=== PATIENT | male | born 1940 | race Two or more races ===

== ENCOUNTER 2025-04-22 13:01 | Emergency (ER) | payer OTHER ==
[~2025-04-22] VITALS: Ht 167.6 cm; Wt 75.6 kg
--- NOTE | 2025-04-22 14:44 | ED.PDOC ---
Eye-HPI HPI Comments The patient presented with a sore throat and a concern about a growth or mass in the throat. The patient reported having a sore throat and described a sensation of a growth or mass in the throat. The patient recalled an incident from a year ago when something hit the left side of the face and the right side of the neck, near the right clavicle. Since then, the patient experienced pain in the muscles around the neck and believed that a muscle might have been dislodged, causing a growth in the throat. The patient expressed the belief that the muscle roots were displaced and caused the growth. The patient did not report any masses, swelling, or enlargement of the throat. The patient also mentioned that a doctor had advised seeing an ear, nose, and throat specialist for further evaluation. Denies any other symptoms at this time. Denies chest pain shortness of breath Denies inability to move neck, history of meningitis Denies difficulty swallowing nor persistent salivation Denies fevers chills night sweats Denies persistent cough, runny nose, congestion Denies loss of appetite, unintentional weight loss over the past 3 months Denies voice changes Denies history of asthma or seasonal allergies Centor's criteria Look for anterior cervical lymphadenopathy Sandpaperlike rash Tonsillar exudate Tenderness over cervical lymph node Chief Complaint: Body Pain Time Seen by MD: 14:45 Reviewed Notes: Nurses Notes, Medications, Allergies Allergies: Coded Allergies: NO KNOWN ALLERGIES (Unverified , 04/22/25) Home Meds Active Scripts Doxycycline (Monohydrate) (Avidoxy) 100 Mg Tab, 100 MG PO BID for 7 Days, #14 TAB 0 Refills Prov:ANGEL CULLEN Rosa RODRIGUEZ 04/22/25 Information Source: Patient Mode of Arrival: Ambulatory Timing: Other (years) Duration: Since onset Prehospital treatment: None Quality: Pain Lids: Normal Conjunctiva: Normal Cornea: Normal Pupils: Normal EOM: Normal Fundus: Normal Slit lamp exam: Normal Anterior chamber: Normal Mouth: Normal ENT Ear Exam: Normal Nose: Normal Sinuses: Normal Oropharynx: Normal Onset: Spontaneous Throat Exposed to: None History of: None Associated signs and symptoms: Sore Throat Past Medical History PAST MEDICAL HISTORY: Denies Surgical History: Denies all surgeries Family History Family History: Reviewed,noncontributory to illness, Unknown Social History Smoker: Non-Smoker Alcohol: Denies ETOH Use Drugs: Denies Drug Use Lives In: Home Constitutional: denies: chills, diaphoresis, fatigue, fever, malaise, sweats, weakness, others EENTM: reports: throat pain (uncomfortable), throat swelling; denies: blurred vision, double vision, ear bleeding, ear discharge, ear drainage, ear pain, ear ringing, eye pain, eye redness, hearing loss, mouth pain, mouth swelling, nasal discharge, nose bleeding, nose congestion, nose pain, photophobia, tearing, voice changes, others Respiratory: denies: cough, hemoptysis, orthopnea, SOB at rest, shortness of breath, SOB with excertion, stridor, wheezing, others Cardiovascular: denies: chest pain, dizzy spells, diaphoresis, Dyspnea on exertion, edema, irregular heart beat, left arm pain, lightheadedness, palpitations, PND, syncope, others Gastrointestinal: denies: abdomen distended, abdominal pain, blood streaked bowels, constipated, diarrhea, dysphagia, difficulty swallowing, hematemesis, melena, nausea, poor appetite, poor fluid intake, rectal bleeding, rectal pain, vomiting, others Genitourinary: denies: burning, dysuria, flank pain, frequency, hematuria, incontinence, penile discharge, penile sore, pain, testicle pain, testicle swelling, urgency, others Neurological: denies: dizziness, fainting, headache, left sided numbness, left sided weakness, numbness, paresthesia, pre-existing deficit, right sided numbness, right sided weakness, seizure, speech problems, tingling, tremors, w eakness, others Musculoskeletal: denies: back pain, gout, joint pain, joint swelling, muscle pain, muscle stiffness, neck pain, others Integumetry: denies: bruises, change in color, change in hair/nails, dryness, laceration, lesions, lumps, rash, wounds, others Allergic/Immunocompromised: denies: Difficulty Healing, Frequent Infections, Hives, Itching, others Hematologic/Lymphatic: denies: anemia, blood clots, easy bleeding, easy bruising, swollen glands, others Endocrine: denies: excessive hunger, excessive sweating, excessive thirst, excessive urination, flushing, intolerance to cold, intolerance to heat, unexplained weight gain, unexplained weight loss, others Psychiatric: denies: anxiety, bipolar disorder, depression, hopeless, panic disorder, schizophrenia, sleepless, suicidal, others All Other Systems: Reviewed and Negative Physical Exam Exam Comments Moist mucous membranes, uvula midline, no airway obstruction, no tenderness in the cervical lymph nodes, no visible masses, no tracheal deviation, neck supple. Cardiac, Respiratory: Lungs were clear. General Appearance: No Apparent Distress, Normal HEENT: Normal ENT Inspection, Pharynx Normal, TMs Normal Neck: Full Range of Motion, Non-Tender, Normal, Normal Inspection Respiratory: Chest Non-Tender, Lungs Clear, No Accessory Muscle Use, No Respiratory Distress, Normal Breath Sounds Cardiovascular: No Edema, No JVD, No Murmur, No Gallop, Normal Peripheral Pulses, Regular Rate/Rhythm Breast Exam: Deferred Gastrointestinal: No Organomegaly, Non Tender, No Pulsatile Mass, Normal Bowel Sounds, Soft Genitalia: Deferred Pelvic: Deferred Rectal: Deferred Extremities: No calf tenderness, Normal capillary refill, Normal inspection, Normal range of motion, Non-tender, No pedal edema Musculoskeletal : Apperance: Normal Neurologic: Alert, ocean biologist II-XII nml as Tested, No Motor Deficits, Normal Affect, Normal Mood, No Sensory Deficits Cerebellar Function: Normal Reflexes: Normal Skin: Dry, Normal Color, Warm Lymphatic: No Adenopathy Was a procedure done? Was a procedure done?: No EENT DIFF Eye: Other X-Ray, Labs, Meds, VS Vital Signs Date Time Temp Pulse Resp B/P (MAP) Pulse Ox O2 Delivery O2 Flow Rate FiO2 04/22/25 16:28 92 18 96 Room Air 04/22/25 16:28 98.2 92 18 110/72 (85) 96 98.2 04/22/25 13:06 98.1 51 16 124/48 94 98.1 X-Ray, Labs, Meds, VS Comment Patient arrives alert and oriented, ABC's intact, afebrile, vital signs stable, saturating well in room air The patient presented with a sore throat and a perceived growth in the throat. The patients symptoms may suggest a possible benign growth or an infection, given the description of pain and perceived mass. The lack of any visible masses or tracheal deviation, along with the clear lungs, suggests that there may not be an immediate airway threat. However, the patient's persistent concern and the history of trauma necessitate further investigation to rule out any underlying pathology. The patient was advised to follow up with an ear, nose, and throat specialist for further evaluation and management of the perceived growth. A chest X-ray was discussed as a potential diagnostic tool, pending follow-up with the specialist. The patient was informed that the current examination did not reveal visible masses or airway obstructions but was advised to pursue further evaluation with a specialist. The patient was advised to schedule an appointment with their primary care physician and an ear, nose, and throat specialist for ongoing management. The patient was informed about the importance of follow-up to address the concerns with a specialist. Additional MDM Review of External, Non-ED records: External records reviewed. Discussion with independent historian (EMS, family) history obtained from the patient/parents (if applicable) at bedside Chronic conditions affecting care: None Social determinants of health affecting care: None Consideration of admission (observation or admission): I considered escalation of care to admission for this patient, however given the reassuring workup, the patient is safe for outpatient management. Discussion with the Radiology: No Tests considered but not performed: Prescription medication considered but not given: Time of 1ST Reevaluation: 15:15 Reevaluation 1ST: Unchanged Patient Education/Counseling: Diagnosis, Treatment, Prognosis Family Education/Counseling: No Family Present SEPSIS Sepsis Screen Date sepsis recognized/suspect: Apr 22, 2025 Time Sepsis recognized/suspect: 1306 Recent Procedure: No On Antibiotic Therapy: No Respiratory Rate >20: No Heart Rate >90: No Temp<36 C (96.8 F) or >38.3 C: No SBP <90 or MAP <65 mmHG: No New Acute Mental Status Change: No Is the patient on CPAP, BIPAP,: No Physician Orders Chest Xray 1 View (04/22/25 14:36) Vital Signs Date Time Temp Pulse Resp B/P (MAP) Pulse Ox O2 Delivery O2 Flow Rate FiO2 04/22/25 16:28 92 18 96 Room Air 04/22/25 16:28 98.2 92 18 110/72 (85) 96 98.2 04/22/25 13:06 98.1 51 16 124/48 94 98.1 Departure 1 Departure Time of Disposition: 15:51 Impression: Primary Impression: Pulmonary infiltrate Disposition: 01 HOME / SELF CARE / HOMELESS Condition: Stable e-Prescriptions Doxycycline (Monohydrate) (Avidoxy) 100 Mg Tab 100 MG PO BID for 7 Days, #14 TAB 0 Refills Prov: ANGEL CULLEN NP 04/22/25 Discharged With: Self Critical Care Note Critical Care Time?: No Stability Stability form required: No Heart Score Heart Score: Heart Score Response (Comments) Value History N/A 0 EKG N/A 0 Age N/A 0 Risk Factors N/A 0 Troponin N/A 0 Total 0 I personally scribed for ANGEL CULLEN NP ([email or web address]) on 04/22/25 at 14:44. Electronically submitted by Gerry Mike ([email or web address]). ANGEL CULLEN NP Apr 22, 2025 14:44
--- NOTE | 2025-04-22 15:13 | DVH ---
CHEST RADIOGRAPH Indication: r/o pathology Technique: Single frontal view of the chest was obtained Comparison: None FINDINGS: Lines and Tubes: None Lungs: Mildly prominent bronchovascular markings noted in both lung bases. This may be due to atelectasis or chronic disease. There are no prior studies for comparison Pleura: No effusion. No pneumothorax. Cardiomediastinal contours: Unremarkable Bones: No acute osseous abnormality. IMPRESSION: 1. Prominent bibasilar bronchovascular markings. This may represent developing infiltrate or atelectasis. A 3rd possibility may be that this is chronic disease. There are no prior studies for comparison.
[2025-04-22] MEDS ORDERED: DOXY100T51 PO (15:52)
[2025-04-22 16:28] VITALS: BP 110/72; PULSE 92; RESP 18; TEMP 98.2; O2SAT 96
== END 2025-04-22 16:30 | disposition home or self-care (01) ==
LOC: ER 13:01
DX: R91.8 Other nonspecific abnormal finding of lung field (principal)
CPT/HCPCS: 71045